=== PATIENT | female | born 1965 | race Caucasian/White ===

== ENCOUNTER → 2017-12-30 | Outpatient (CLI) | payer BC ==
--- NOTE | 2017-12-30 17:33 | KCIC ---
PELVIS W/TV Clinical Indication: Pelvic pain. Comparison: Pelvic ultrasound, January 14, 2015. TECHNIQUE: Real-time ultrasound imaging of the pelvis using transabdominal and transvaginal window is performed. Findings: Uterus measures 10.4 x 4 x 5.7 cm. Uterus is anteverted. The endometrial stripe is heterogeneous and upper limits of normal for a premenopausal female measuring 14 mm. There are multiple cystic lesions of various sizes in the endocervix. Some of the cysts appear complicated as they contain internal echoes. Color Doppler interrogation is not completely negative. A solid component cannot be excluded. No pelvic free fluid is identified. There is normal blood flow in the ovaries. There is an irregularly-shaped functional cyst in the right ovary measuring 2.2 x 1.8 x 2.4 cm. IMPRESSION: 1. Numerous cystic lesions of the endocervix. Some contain internal echoes. Solid component cannot be excluded. Differential considerations include cervical malignancy, adenoma malignum, tunnel cluster, or nabothian cysts. 2. Small functional cyst of the right ovary. Electronically signed by: Yobani Peralta MD (12/30/2017 5:29 PM) [id number]
== END | disposition home or self-care (01) ==
LOC: KCIC US 13:46
PROVIDERS: ATTEND Nurse Practitioner Family
DX: N83.291 Other ovarian cyst, right side (principal); N88.8 Other specified noninflammatory disorders of cervix uteri
CPT/HCPCS: 76830; 76856

== ENCOUNTER → 2018-04-03 | Outpatient (CLI) | payer BC ==
--- NOTE | 2018-04-04 17:23 | KCIC ---
Bilateral digital screening mammograms: Reason for examination: Routine screening. Comparison is made to previous studies dated 02/06/2016 and 01/14/2015. Interpretation was made with the benefit of CAD. The skin and nipples show no abnormalities. No abnormal axillary lymph nodes are seen. The breast parenchyma is heterogeneously dense. (Breast density: Category C.) There continues to be some parenchymal asymmetry which is unchanged. There are no dominant masses, suspicious calcifications or architectural distortion. Impression: No evidence of malignancy. Recommend routine screening. Your patient's mammogram demonstrates that she has dense breast tissue (breast density category C or D), which could hide abnormalities, and if she has other risk factors for breast cancer that have been identified, she might benefit from supplemental screening tests that may be suggested by you as her ordering physician. Dense breast tissue, in and of itself, is a relatively common condition. Therefore, this information is not provided to cause undue concern, but rather to raise your awareness and to promote discussion with your patient regarding the presence of other risk factors, in addition to dense breast tissue. Your patient's mammography results will be sent to her. BI-RAD Category 2: Benign. "Our facility is accredited by the [employer] Mammography Program." This patient's information has been entered into a reminder system for the patient to be notified with the results of her examination and a target date for the next mammogram. Electronically signed by: Wen Turcios MD (04/04/2018 5:19 PM) [id number]
== END | disposition home or self-care (01) ==
LOC: KCIC MAMMO 17:48
PROVIDERS: ATTEND Nurse Practitioner Family
DX: Z12.31 Encounter for screening mammogram for malignant neoplasm of breast (principal)
CPT/HCPCS: 77067

== ENCOUNTER → 2018-07-28 | Day surgery (SDC) | payer BC ==
[~2018-07-28] MED LIST: HYDROmorphone 2 MG/ML VIAL IV PRN; IV RINGERS,LACTATED 1000ML 1,000 ML IV SCH; LIDOCAINE 1% PF 2 ML VIAL. ID PRN; LIDOCAINE 2% PF 5 ML VIAL. ONE; MIDAZOLAM HCL/PF 2 MG/2 ML VIAL. IV PRN; MORPHINE SULFATE 2 MG/ML VIAL. IV PRN; ONDANSETRON PF 4 MG/2 ML VIAL. IV PRN; PROCHLORPERAZINE 10 MG/2 ML VIAL. IV PRN; PROPOFOL 40 ML IV ONE; fentaNYL PF VIAL 100 MCG/2 ML VIAL IV PRN
[2018-07-28 12:55] VITALS: BP 128/76
--- NOTE | 2018-08-09 12:41 | PDOC1 ---
History and Physical Date of Admission Date of Admission DATE: 07/28/18 TIME: 12:38 Identification/Chief Complaint Chief Complaint screening for colon cancer Source Source: Patient History of Present Illness History of Present Illness 52-year-old female in for screening colonoscopy she's never had a colonoscopy before denies any colon complaints Past Medical History Cardiovascular: No pertinent hx Pulmonary: No pertinent hx GI: No pertinent hx Heme/Onc: No pertinent hx Hepatobiliary: No pertinent hx Psych: No pertinent hx Rheumatologic: No pertinent hx Infectious disease: No pertinent hx ENT: No pertinent hx Renal/: No pertinent hx Endocrine: No pertinent hx Dermatology: No pertinent hx Past Surgical History Past Surgical History: No pertinent history Family History Family History: No Significant Social History Smoke: No ALCOHOL: none Drugs: None Current Medications Current Medications Current Medications Ondansetron HCl (Zofran) 4 mg PRN Q6HRS PRN IV NAUSEA/VOMITING; Start 07/28/18 at 07:00; Stop 07/29/18 at 06:59; Status DC Fentanyl Citrate (Fentanyl 2ml Vial) 25 mcg PRN Q5MIN PRN IV MILD PAIN; Start 07/28/18 at 07:00; Stop 07/29/18 at 06:59; Status DC Fentanyl Citrate (Fentanyl 2ml Vial) 50 mcg PRN Q5MIN PRN IV MODERATE TO SEVERE PAIN; Start 07/28/18 at 07:00; Stop 07/29/18 at 06:59; Status DC Morphine Sulfate (Morphine Sulfate) 1 mg PRN Q10MIN PRN IV SEVERE PAIN; Start 07/28/18 at 07:00; Stop 07/29/18 at 06:59; Status DC Ringer's Solution 1,000 ml @ 30 mls/hr Q24H IV Last administered on 07/28/18at 07:00; Start 07/28/18 at 07:00; Stop 07/28/18 at 18:59; Status DC Lidocaine HCl (Xylocaine-Mpf 1% 2ml Vial) 2 ml PRN 1X PRN ID PRIOR TO IV START ; Start 07/28/18 at 07:00; Stop 07/29/18 at 06:59; Status DC Hydromorphone HCl (Dilaudid) 0.5 mg PRN Q10MIN PRN IV SEV PAIN, Second choice; Start 07/28/18 at 07:00; Stop 07/29/18 at 06:59; Status DC Prochlorperazine Edisylate (Compazine) 5 mg PACU PRN PRN IV NAUSEA, MRX1; Start 07/28/18 at 07:00; Stop 07/29/18 at 06:59; Status DC Midazolam HCl (Versed) 2 mg PRN 1X PRN IV PRIOR TO PROCEDURE; Start 07/28/18 at 11:30; Stop 07/29/18 at 11:29; Status DC Fentanyl Citrate (Fentanyl 2ml Vial) 25 mcg PRN Q5MIN PRN IV X 2 DOSES FOR PAIN ; Start 07/28/18 at 11:30; Stop 07/29/18 at 11:29; Status DC Fentanyl Citrate (Fentanyl 2ml Vial) 50 mcg PRN Q5MIN PRN IV X 2 DOSES FOR PAIN ; Start 07/28/18 at 11:30; Stop 07/29/18 at 11:29; Status DC Ringer's Solution 1,000 ml @ 125 mls/hr Q8H IV ; Start 07/28/18 at 11:20; Stop 07/28/18 at 23:19; Status DC Lidocaine HCl (Xylocaine-Mpf 1% 2ml Vial) 2 ml 1X PRN PRN ID IV START; Start at 11:30; Stop 07/29/18 at 11:29; Status DC Propofol 40 ml @ As Directed STK-MED ONCE IV ; Start 07/28/18 at 12:07; Stop at 12:08; Status DC Lidocaine HCl (Lidocaine Pf 2% Vial) 5 ml STK-MED ONCE .ROUTE ; Start 07/28/18 at 12:07; Stop 07/28/18 at 12:08; Status DC Active Scripts Active Reported No Known Medications Prior To Admisstion (Info) Each 1 Each NA Allergies Allergies: Coded Allergies: No Known Drug Allergies (Unverified , 07/28/18) Physical Exam General: Alert, Oriented X3, Cooperative, No acute distress HEENT: Atraumatic, PERRLA, EOMI Lungs: Clear to auscultation, Normal air movement Heart: RRR, no murmurs Abdomen: Normal bowel sounds, Soft, No tenderness Rectal Exam: not examined Extremities: No edema Skin: No significant lesion Neuro: Normal speech Psych/Mental Status: Mental status NL VTE Prophylaxis Ordered VTE Prophylaxis Devices: Contraindicated VTE Pharmacological Prophylaxi: Contraindicated Assessment/Plan Assessment/Plan Colonoscopy for screening colon cancer ZACK BLAKE MD Aug 09, 2018 12:41
== END | disposition home or self-care (01) ==
LOC: SURG 11:05
PROVIDERS: ATTEND Surgery
DX: Z12.11 Encounter for screening for malignant neoplasm of colon (principal); Z79.899 Other long term (current) drug therapy; Z87.19 Personal history of other diseases of the digestive system
CPT/HCPCS: 45378; J2001; J2704

== ENCOUNTER → 2019-03-13 | Outpatient (CLI) | payer BC ==
[2018-07-28 12:55] VITALS: BP 128/76
--- NOTE | 2019-03-14 07:58 | KCIC ---
FOOT RIGHT 3V History: Right foot pain. Technique: 3 views right foot. Comparison: None. Findings: Normal alignment. No fracture. Soft tissues unremarkable. Impression: 1. No acute osseous abnormality. Electronically signed by: Bryant Grady DO (03/14/2019 7:55 AM) [facility]
== END | disposition home or self-care (01) ==
LOC: KCIC 09:11
PROVIDERS: ATTEND Nurse Practitioner Family
DX: M79.671 Pain in right foot (principal)
CPT/HCPCS: 73630